=== PATIENT | male | born 1960 | race Caucasian/White ===

== ENCOUNTER 2017-04-07 03:08 | Emergency (ER) | payer SELFPAY ==
[~2017-04-07] VITALS: Ht 180.3 cm; Wt 90.7 kg
--- NOTE | 2017-04-07 03:32 | NUR ---
PT BIBSELF C/O LEFT FOOT 3RD TOE PAIN X 2 DAYS. TDAP NOT UP TO DATE. PT AOX3 RR EVEN AND UNLABORED. NO SOB NOTED. NAD NOTED. NO NVD AT THIS TIME. WAITING FOR MD BAXTER.
--- NOTE | 2017-04-07 03:45 | NUR ---
RADIOLOGY AT BEDSIDE FOR XRAY
--- NOTE | 2017-04-07 04:44 | NUR ---
PT LEFT WITHOUT BEING SEEN BY MD. DR. GIBSON MADE AWARE
--- NOTE | 2017-04-07 04:44 | NUR ---
Yared saldivar in EDM - 04/07/17 at 0452 by DARNELL [facility].
[2017-04-07 04:45] VITALS: BP 112/74
== END 2017-04-07 04:46 | disposition left against medical advice (07) ==
LOC: ER 03:13
DX: Z53.21 Procedure and treatment not carried out due to patient leaving prior to being seen by health care provider (principal)
CPT/HCPCS: 73630; 99281; A4606; Z7610; Z7502